=== PATIENT | female | born 1955 | race Caucasian/White ===

== ENCOUNTER 2020-05-18 05:57 | Day surgery (SDC) | payer MEDICARE, BC ==
[2020-05-18] MEDS ORDERED: Sodium Chloride 0.9% 1,000 ML IV SCH (06:30)
[2020-05-18] MEDS ORDERED: Midazolam 1 MG/ML 2 ML SDV ONE (07:10)
[2020-05-18] MEDS ORDERED: Propofol 200 MG/20 ML SDV ONE (07:10)
[2020-05-18] MEDS ORDERED: fentaNYL 100 MCG/2 ML SDV ONE (07:10)
[2020-05-18] MEDS ORDERED: Glycopyrrolate 0.2 MG/ML 2 ML SDV ONE (07:51)
--- NOTE | 2020-05-18 09:26 | OR ---
DATE OF PROCEDURE: 05/18/2020 SURGEON: Reece Moore MD PROCEDURE: Colonoscopy. FINDINGS: Sigmoid colon polyp, approximately 5 mm, completely removed using cold biopsy forceps. COMPLICATIONS: None. PREPARER MAKING DEPARTMENT: None. ANESTHESIA: MAC. PREOPERATIVE DIAGNOSES: History of colon polyps and screening. POSTOPERATIVE DIAGNOSES: History of colon polyps and screening. RISKS: Risks, benefits, alternatives, and limitations including, but not limited to infection, bleeding, and perforation were explained to the patient, who wished to proceed. We also discussed false positives and false negatives. PROCEDURE IN DETAIL: The patient was placed in left lateral decubitus position. Digital rectal exam was performed without abnormality. Scope was introduced and advanced atraumatically to the ileocecal valve. Photo was taken of this. Scope was brought back through the ascending, transverse, descending colon, and retroflexed. No evidence of old or new blood. No masses. No diverticulosis. No colitis. Greater than 10 minutes was spent removing the scope. The patient tolerated the procedure well. Reece Moore MD /[id number]
== END 2020-05-18 09:40 | disposition home or self-care (01) ==
LOC: JP.SDS 05:57
PROVIDERS: ATTEND Surgery
DX: Z12.11 Encounter for screening for malignant neoplasm of colon (principal); D12.5 Benign neoplasm of sigmoid colon; I10 Essential (primary) hypertension
CPT/HCPCS: 45380; J2250; J2704; J3010; J3490; J7030; 88305

== ENCOUNTER 2023-05-10 06:59 | Day surgery (SDC) | payer MEDICARE ==
[2023-05-10] MEDS ORDERED: fentaNYL 50 MCG/ML SDV ONE (07:22)
[2023-05-10] MEDS ORDERED: Midazolam 1 MG/ML 2 ML SDV ONE (07:22)
[2023-05-10] MEDS ORDERED: Propofol 200 MG/20 ML SDV ONE (07:22)
[2023-05-10] MEDS ORDERED: Lactated Ringers 1,000 ML IV SCH (07:45)
== END 2023-05-10 09:46 | disposition home or self-care (01) ==
LOC: JP.SDS 06:59
PROVIDERS: ATTEND Student in an Organized Health Care Education/Training Program
DX: Z12.11 Encounter for screening for malignant neoplasm of colon (principal); K63.5 Polyp of colon; I10 Essential (primary) hypertension; E78.00 Pure hypercholesterolemia, unspecified
CPT/HCPCS: 45380; 88305; J2250; J2704; J3010; J7120

== ENCOUNTER 2023-06-06 19:07 | Emergency (ER) | payer MEDICARE | END 2023-06-06 21:05 | disposition home or self-care (01) | LOC: JP.ED 19:07 | DX: S06.0XAA Concussion with loss of consciousness status unknown, initial encounter (principal); E78.00 Pure hypercholesterolemia, unspecified; I10 Essential (primary) hypertension; Z79.899 Other long term (current) drug therapy; W00.0XXA Fall on same level due to ice and snow, initial encounter | CPT/HCPCS: 70450; 99284 ==